=== PATIENT | male | born 1935 | race Caucasian/White ===

== ENCOUNTER 2018-01-12 21:10 | Emergency (ER) | payer OTHER, MEDICARE ==
[2018-01-12] MEDS ORDERED: Lidocaine 1% 30 ML SDV INJECT ONE (21:26)
--- NOTE | 2018-01-12 23:39 | EDM.PDOC ---
ED HPI GENERAL MEDICAL PROBLEM - General Chief Complaint: Laceration Stated Complaint: Cut ear on a piece of metal Time Seen by Provider: 01/12/18 21:20 Source of Information: Reports: Patient History Limitations: Reports: No Limitations - History of Present Illness INITIAL COMMENTS - FREE TEXT/NARRATIVE: Pt. presents to ER with complaints to cut to L ear. States that he stuck his ear in a farm implement at approx. 1500 this afternoon. Denies any injury other than what is isolated to his ear. Denies loss of consciousness. No confusion. He states that he is on plavix but is not anticoagulated. No injury other than what is isolated to L helix. Onset: Today - Related Data Allergies Allergy/AdvReac Type Severity Reaction Status Date / Time atorvastatin calcium Allergy Body Aches Verified 01/12/18 21:14 [From Lipitor] gemfibrozil Allergy Body Aches Verified 01/12/18 21:14 Sulfa (Sulfonamide Allergy Bleeding Verified 01/12/18 21:14 Antibiotics) Home Meds: Home Meds Aspirin [Halfprin] 81 mg PO DAILY 04/13/14 [History] Clopidogrel [Plavix] 75 mg PO DAILY 04/13/14 [History] Labetalol [Normodyne] 100 mg PO DAILY 04/13/14 [History] amLODIPine [Norvasc] 10 mg PO BEDTIME 04/13/14 [History] cloNIDine [Catapres] 0.2 mg PO BID 04/13/14 [History] Cholecalciferol (Vitamin D3) [Vitamin D3] 1,000 unit PO DAILY@1300 04/20/14 [ History] Famotidine [Pepcid AC] 20 mg PO BID 04/20/14 [History] Lisinopril [Prinivil] 5 mg PO DAILY 04/20/14 [History] Magnesium Oxide 500 mg PO BID 04/20/14 [History] Multivitamin with Minerals [Multiple Vitamin] 1 tab PO DAILY@1300 04/20/14 [ History] Past Medical History HEENT History: Reports: Cataract, Other (See Below) 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, CAD, High Cholesterol, Hypertension Neurological History: Reports: CVA - Past Surgical History HEENT Surgical History: Reports: Cataract Surgery Social & Family History - Tobacco Use Smoking Status *Q: Never Smoker - Recreational Drug Use Recreational Drug Use: No ED ROS GENERAL - Review of Systems Review Of Systems: See Below Constitutional: Reports: No Symptoms HEENT: Reports: Ear Pain, Other (laceration to helix of ear) Respiratory: Reports: No Symptoms Cardiovascular: Reports: No Symptoms Endocrine: Reports: No Symptoms GI/Abdominal: Reports: No Symptoms : Reports: No Symptoms Musculoskeletal: Reports: No Symptoms Skin: Reports: No Symptoms Neurological: Reports: No Symptoms Psychiatric: Reports: No Symptoms Hematologic/Lymphatic: Reports: No Symptoms Immunologic: Reports: No Symptoms ED EXAM, SKIN/RASH Exam: See Below Exam Limited By: No Limitations General Appearance: Alert, WD/WN, No Apparent Distress Ears: Other (3 cm laceration to helix of L ear) ED SKIN PROCEDURES - Laceration/Wound Repair Left Ear Appearance: Subcutaneous Distal NVT: Neuro & Vascular Intact Anesthetic Type: Local Local Anesthesia - Lidocaine (Xylocaine): 1% Plain Local Anesthetic Volume: 4cc Skin Prep: Chlorhexidine (Hibiciens), Saline Exploration/Debridement/Repair: Wound Explored Closed with: Sutures Suture Size: 4-0 Suture Type: Nylon # of Sutures: 5 Course - Vital Signs Last Recorded V/S: Last Vital Signs Temp 36.9 C 01/12/18 21:16 Pulse 80 01/12/18 21:16 Resp 14 01/12/18 21:16 BP 196/84 H 01/12/18 21:16 Pulse Ox 95 01/12/18 21:16 - Orders/Labs/Meds Meds: Medications Discontinued Medications Generic Name Dose Route Start Last Admin Trade Name Angelita PRN Reason Stop Dose Admin Lidocaine HCl 30 ml 01/12/18 21:26 01/12/18 21:36 Xylocaine-Mpf 1% INJECT 01/12/18 21:27 30 ml ONETIME ONE Administration Departure - Departure Time of Disposition: 23:39 Disposition: Admitted As Inpatient 66 Condition: Good Clinical Impression: Laceration - Discharge Information Instructions: Laceration Care, Adult Referrals: Gray Torres MD [Primary Care Provider] - Forms: ED Department Discharge Additional Instructions: Keep dry for 48 hours. Keep covered for that long as well. Sutures out in 10 days, sooner if redness, swelling, or discharge from the area. - Assessment/Plan Plan: Keep dry for 48 hours. Keep covered for that long as well. Sutures out in 10 days, sooner if redness, swelling, or discharge from the area.
== END 2018-01-12 22:30 | disposition home or self-care (01) ==
LOC: VM.ED 21:10 → SUPCPDRO 21:10 → VM.ED 22:30
DX: S01.312A Laceration without foreign body of left ear, initial encounter (principal); I10 Essential (primary) hypertension; E78.00 Pure hypercholesterolemia, unspecified; I25.810 Atherosclerosis of coronary artery bypass graft(s) without angina pectoris; Z95.1 Presence of aortocoronary bypass graft; Z88.2 Allergy status to sulfonamides; Z88.8 Allergy status to other drugs, medicaments and biological substances; Z79.82 Long term (current) use of aspirin; Z79.01 Long term (current) use of anticoagulants; Z79.899 Other long term (current) drug therapy; W22.8XXA Striking against or struck by other objects, initial encounter; Y92.79 Other farm location as the place of occurrence of the external cause
CPT/HCPCS: 12011; 12013; 99283; 99283-GF-25

== ENCOUNTER 2018-08-07 11:33 | Inpatient (IN) | payer MEDICARE, OTHER ==
--- NOTE | 2018-08-07 18:34 | PCM.HP ---
H&P History of Present Illness - General Date of Service: 08/07/18 Admit Problem/Dx: Admission Diagnosis/Problem Admission Diagnosis/Problem Weakness - History of Present Illness Initial Comments - Free Text/Narative: History of present illness: Swing bed and [place] for postoperative strengthening and diet. Approximately 12 days ago presented to the ER with abdominal pain. CT showed incarcerated inguinal hernia and small bowel obstruction. Underwent surgery pretty quickly in [place]. Postoperative course complicated by ileus. Has just started tolerating full diet the past day or two here. Had an NG tube prior. He otherwise notes he's feeling quite good. He's been walking in the [place]. Did develop some edema in his legs and scrotum postoperatively. He states these are improving pretty briskly as well. Denies any cardiopulmonary symptoms. 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 PMH also incl ASHLEY, HTN, Prostate CA. Medications: Flomax, Trandate, Zetia, sneezing, aspirin, Plavix, Norvasc, lisinopril. Allergies include intolerance of statin, gemfibrozil, sulfa. Nonsmoker. Lives alone. Does have some family in the area. Family history noncontributory. Review of systems: Denies chest pain denies palpitations denies dyspnea denies abdominal pain denies vomiting denies diarrhea denies constipation denies urinary difficulty. Leg and scrotal swelling per HPI. Physical exam. Vital signs normal. Alert oriented pleasant sitting in chair in no acute distress. Heart and lungs clear to auscultation. Abdomen soft nontender with normal bowel sounds. 1+ pitting edema bilaterally. Mild to moderate scrotal edema. Assessment and plan: Swing bed admit for prolonged ileus after surgery for incarcerated hernia and small bowel obstruction. POD ~#12. This appears to be improving. He states he had a good bowel movement and eight pretty normally today. Continue to work on diet. He is ambulating which should help bowel movements as well. Consult PT/ OT. This should help his peripheral and scrotal edema to resolve as well. His coronary disease appears stable. He can resume his usual medicines in this regard. We will recheck his postoperative anemia and hypokalemia in the a.m. - Related Data Allergies/Adverse Reactions: Allergies Allergy/AdvReac Type Severity Reaction Status Date / Time atorvastatin calcium Allergy Body Aches Verified 07/26/18 18:25 [From Lipitor] gemfibrozil Allergy Body Aches Verified 07/26/18 18:25 Sulfa (Sulfonamide Allergy Bleeding Verified 07/26/18 18:25 Antibiotics) Home Medications: Home Meds Clopidogrel [Plavix] 75 mg PO DAILY 04/13/14 [History] Labetalol [Normodyne] 100 mg PO BID 04/13/14 [History] amLODIPine [Norvasc] 10 mg PO DAILY 04/13/14 [History] Cholecalciferol (Vitamin D3) [Vitamin D3] 2,000 unit PO DAILY 04/20/14 [History] Famotidine [Pepcid AC] 20 mg PO BID 04/20/14 [History] Lisinopril [Prinivil] 5 mg PO DAILY 04/20/14 [History] Magnesium Oxide 500 mg PO BID 04/20/14 [History] Multivitamin with Minerals [Multiple Vitamin] 1 tab PO DAILY 04/20/14 [History] Ezetimibe [Zetia] 10 mg PO DAILY 07/26/18 [History] Aspirin [Aspirin EC] 325 mg PO DAILY 08/07/18 [History] Tamsulosin [Tamsulosin 24 Hr] 0.4 mg PO DAILY 08/07/18 [History] oxyCODONE 5 mg PO Q4H PRN 08/07/18 [History] Past Medical History HEENT History: Reports: Cataract, Other (See Below) 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, CAD, High Cholesterol, Hypertension Gastrointestinal History: Reports: Bowel Obstruction Neurological History: Reports: CVA - Past Surgical History HEENT Surgical History: Reports: Cataract Surgery GI Surgical History: Reports: Small Bowel Social & Family History - Tobacco Use Smoking Status *Q: Never Smoker Second Hand Smoke Exposure: No - Caffeine Use Caffeine Use: Reports: Coffee, Soda - Recreational Drug Use Recreational Drug Use: No H&P Review of Systems - Review of Systems: Review Of Systems: See Below Exam - Exam Exam: See Below - Vital Signs Vital Signs: Last Vital Signs Temp 36.5 C 08/07/18 18:00 Pulse 75 08/07/18 18:00 Resp 20 08/07/18 18:00 BP 143/67 H 08/07/18 18:00 Pulse Ox 97 08/07/18 18:00 Weight: 84.822 kg Problem List Initiated/Reviewed/Updated: Yes Orders Last 24hrs: Active Orders 24 hr Category Date Time Status Patient Status [ADT] Routine ADT 08/07/18 15:04 Active Communication Order [RC] DAILY Care 08/07/18 12:37 Active Communication Order [RC] DAILY Care 08/07/18 12:39 Active May Shower [RC] ASDIRECTED Care 08/07/18 12:38 Active Consult to Occupational Therapy [OT Evaluation and Cons 08/07/18 12:36 Active Treatment] [CONS] Routine Consult to Physical Therapy [PT Evaluation and Cons 08/07/18 12:36 Active Treatment] [CONS] Routine
[2018-08-07] MEDS ORDERED: Polyethylene Glycol 3350 Powder 17 GM Packet PO PRN (18:35)
[2018-08-07] MEDS ORDERED: Acetaminophen 325 MG Tab PO PRN (18:35)
[2018-08-07] MEDS ORDERED: Acetaminophen/HYDROcodone 325-5 MG Tab PO PRN (18:35)
[2018-08-07] MEDS ORDERED: Ondansetron 4 MG Tab.DIS PO PRN (18:35)
[2018-08-07] MEDS: Magnesium Oxide 400 MG Tab PO SCH ×2 (18:56→20:43)
[2018-08-07] MEDS: Labetalol 100 MG Tab PO SCH (20:42)
[2018-08-07] MEDS: Famotidine 20 MG Tab PO SCH (20:42)
[2018-08-08] MEDS: oxyCODONE 5 MG Tab PO PRN (06:21)
[2018-08-08 07:31] LABS: CHLORIDE,CL 106 mmol/L (98-107); SODIUM,NA 141 mmol/L (136-145)
[2018-08-08 07:33] LABS: ANION GAP 10.2 mmol/L (10-20)
[2018-08-08] MEDS: Labetalol 100 MG Tab PO SCH ×2 (08:20→20:26)
[2018-08-08] MEDS: amLODIPine 10 MG Tab PO SCH (08:21)
[2018-08-08] MEDS: Tamsulosin 0.4 MG Cap.ER PO SCH (08:21)
[2018-08-08] MEDS: Magnesium Oxide 400 MG Tab PO SCH ×2 (08:21→20:37)
[2018-08-08] MEDS: Ezetimibe 10 MG Tab PO SCH (08:21)
[2018-08-08] MEDS: Cholecalciferol (Vitamin D3) 1,000 Unit Tab PO SCH (08:21)
[2018-08-08] MEDS: Lisinopril 5 MG Tab PO SCH (08:21)
[2018-08-08] MEDS: Clopidogrel 75 MG Tab PO SCH (08:22)
[2018-08-08] MEDS: Aspirin 325 MG Tab.EC PO SCH (08:22)
[2018-08-08] MEDS: Famotidine 20 MG Tab PO SCH ×2 (08:22→20:26)
[2018-08-08] MEDS: Multivitamins with Iron/Calcium/Folic Acid/Minerals Tab PO SCH (08:22)
[2018-08-09] MEDS: oxyCODONE 5 MG Tab PO PRN (02:41)
[2018-08-09] MEDS: Cholecalciferol (Vitamin D3) 1,000 Unit Tab PO SCH (07:05)
[2018-08-09] MEDS: Ezetimibe 10 MG Tab PO SCH (07:05)
[2018-08-09] MEDS: Labetalol 100 MG Tab PO SCH ×2 (07:05→20:13)
[2018-08-09] MEDS: Lisinopril 5 MG Tab PO SCH (07:05)
[2018-08-09] MEDS: Magnesium Oxide 400 MG Tab PO SCH ×2 (07:05→20:13)
[2018-08-09] MEDS: Aspirin 325 MG Tab.EC PO SCH (07:06)
[2018-08-09] MEDS: Multivitamins with Iron/Calcium/Folic Acid/Minerals Tab PO SCH (07:06)
[2018-08-09] MEDS: amLODIPine 10 MG Tab PO SCH (07:06)
[2018-08-09] MEDS: Famotidine 20 MG Tab PO SCH ×2 (07:06→20:13)
[2018-08-09] MEDS: Clopidogrel 75 MG Tab PO SCH (07:06)
[2018-08-09] MEDS: Tamsulosin 0.4 MG Cap.ER PO SCH (07:06)
[2018-08-09] MEDS ORDERED: Magnesium Hydroxide 400 MG/5 ML Susp 30 ML Cup PO ONE (08:38)
[2018-08-10] MEDS: Tamsulosin 0.4 MG Cap.ER PO SCH (07:46)
[2018-08-10] MEDS: Cholecalciferol (Vitamin D3) 1,000 Unit Tab PO SCH (07:46)
[2018-08-10] MEDS: Famotidine 20 MG Tab PO SCH ×2 (07:47→20:45)
[2018-08-10] MEDS: Clopidogrel 75 MG Tab PO SCH (07:47)
[2018-08-10] MEDS: Aspirin 325 MG Tab.EC PO SCH (07:47)
[2018-08-10] MEDS: Multivitamins with Iron/Calcium/Folic Acid/Minerals Tab PO SCH (07:47)
[2018-08-10] MEDS: Magnesium Oxide 400 MG Tab PO SCH ×2 (07:47→20:45)
[2018-08-10] MEDS: Ezetimibe 10 MG Tab PO SCH (07:47)
[2018-08-10] MEDS: amLODIPine 10 MG Tab PO SCH (07:48)
[2018-08-10] MEDS: Lisinopril 5 MG Tab PO SCH (07:48)
[2018-08-10] MEDS: Labetalol 100 MG Tab PO SCH ×2 (07:48→20:45)
[2018-08-11] MEDS: Tamsulosin 0.4 MG Cap.ER PO SCH (08:10)
[2018-08-11] MEDS: Aspirin 325 MG Tab.EC PO SCH (08:10)
[2018-08-11] MEDS: Famotidine 20 MG Tab PO SCH ×2 (08:10→20:39)
[2018-08-11] MEDS: Ezetimibe 10 MG Tab PO SCH (08:10)
[2018-08-11] MEDS: Lisinopril 5 MG Tab PO SCH (08:11)
[2018-08-11] MEDS: Magnesium Oxide 400 MG Tab PO SCH ×2 (08:11→20:39)
[2018-08-11] MEDS: Multivitamins with Iron/Calcium/Folic Acid/Minerals Tab PO SCH (08:11)
[2018-08-11] MEDS: Cholecalciferol (Vitamin D3) 1,000 Unit Tab PO SCH (08:11)
[2018-08-11] MEDS: Clopidogrel 75 MG Tab PO SCH (08:11)
[2018-08-11] MEDS: amLODIPine 10 MG Tab PO SCH (08:12)
[2018-08-11] MEDS: Labetalol 100 MG Tab PO SCH ×2 (08:12→20:39)
[2018-08-12] MEDS: Aspirin 325 MG Tab.EC PO SCH (09:06)
[2018-08-12] MEDS: Tamsulosin 0.4 MG Cap.ER PO SCH (09:06)
[2018-08-12] MEDS: amLODIPine 10 MG Tab PO SCH (09:07)
[2018-08-12] MEDS: Labetalol 100 MG Tab PO SCH ×2 (09:08→20:00)
[2018-08-12] MEDS: Cholecalciferol (Vitamin D3) 1,000 Unit Tab PO SCH (09:09)
[2018-08-12] MEDS: Famotidine 20 MG Tab PO SCH ×2 (09:09→20:01)
[2018-08-12] MEDS: Clopidogrel 75 MG Tab PO SCH (09:10)
[2018-08-12] MEDS: Lisinopril 5 MG Tab PO SCH (09:10)
[2018-08-12] MEDS: Multivitamins with Iron/Calcium/Folic Acid/Minerals Tab PO SCH (09:10)
[2018-08-12] MEDS: Ezetimibe 10 MG Tab PO SCH (09:11)
[2018-08-12] MEDS: Magnesium Oxide 400 MG Tab PO SCH ×2 (09:12→20:01)
[2018-08-13] MEDS: Famotidine 20 MG Tab PO SCH ×2 (07:46→19:29)
[2018-08-13] MEDS: Magnesium Oxide 400 MG Tab PO SCH ×2 (07:46→19:29)
[2018-08-13] MEDS: Tamsulosin 0.4 MG Cap.ER PO SCH (07:47)
[2018-08-13] MEDS: Ezetimibe 10 MG Tab PO SCH (07:47)
[2018-08-13] MEDS: Aspirin 325 MG Tab.EC PO SCH (07:47)
[2018-08-13] MEDS: Labetalol 100 MG Tab PO SCH ×2 (07:47→19:29)
[2018-08-13] MEDS: Lisinopril 5 MG Tab PO SCH (07:48)
[2018-08-13] MEDS: Clopidogrel 75 MG Tab PO SCH (07:48)
[2018-08-13] MEDS: Cholecalciferol (Vitamin D3) 1,000 Unit Tab PO SCH (07:48)
[2018-08-13] MEDS: Multivitamins with Iron/Calcium/Folic Acid/Minerals Tab PO SCH (07:48)
[2018-08-13] MEDS: amLODIPine 10 MG Tab PO SCH (07:48)
[2018-08-14] MEDS: Aspirin 325 MG Tab.EC PO SCH (07:55)
[2018-08-14] MEDS: Clopidogrel 75 MG Tab PO SCH (07:55)
[2018-08-14] MEDS: Lisinopril 5 MG Tab PO SCH (07:55)
[2018-08-14] MEDS: Magnesium Oxide 400 MG Tab PO SCH ×2 (07:55→19:40)
[2018-08-14] MEDS: Tamsulosin 0.4 MG Cap.ER PO SCH (07:55)
[2018-08-14] MEDS: Ezetimibe 10 MG Tab PO SCH (07:56)
[2018-08-14] MEDS: Multivitamins with Iron/Calcium/Folic Acid/Minerals Tab PO SCH (07:56)
[2018-08-14] MEDS: Labetalol 100 MG Tab PO SCH ×2 (07:56→19:39)
[2018-08-14] MEDS: Cholecalciferol (Vitamin D3) 1,000 Unit Tab PO SCH (07:56)
[2018-08-14] MEDS: Famotidine 20 MG Tab PO SCH ×2 (07:56→19:39)
[2018-08-14] MEDS: amLODIPine 10 MG Tab PO SCH (07:56)
[2018-08-15] MEDS: Ezetimibe 10 MG Tab PO SCH (08:09)
[2018-08-15] MEDS: Tamsulosin 0.4 MG Cap.ER PO SCH (08:10)
[2018-08-15] MEDS: Cholecalciferol (Vitamin D3) 1,000 Unit Tab PO SCH (08:10)
[2018-08-15] MEDS: Magnesium Oxide 400 MG Tab PO SCH ×3 (08:10→19:00)
[2018-08-15] MEDS: Aspirin 325 MG Tab.EC PO SCH (08:10)
[2018-08-15] MEDS: Clopidogrel 75 MG Tab PO SCH (08:10)
[2018-08-15] MEDS: Multivitamins with Iron/Calcium/Folic Acid/Minerals Tab PO SCH (08:11)
[2018-08-15] MEDS: Lisinopril 5 MG Tab PO SCH (08:12)
[2018-08-15] MEDS: Labetalol 100 MG Tab PO SCH ×3 (08:12→19:00)
[2018-08-15] MEDS: amLODIPine 10 MG Tab PO SCH (08:41)
[2018-08-15] MEDS: Famotidine 20 MG Tab PO SCH ×3 (08:44→19:00)
[2018-08-15] MEDS ORDERED: Magnesium Hydroxide 400 MG/5 ML Susp 30 ML Cup PO ONE (11:38)
--- NOTE | 2018-08-15 13:50 | PCM.DCSUM1 ---
Discharge Summary - Hospital Course Free Text/Narrative:: Admitted to swing bed for some basic cares after incarcerated hernia with postoperative ileus. Tolerating full diet, still some subjective constipation but passing BM every day. Ambulating without difficulty. He easily passed PTOT goals. Remote history of coronary disease which appears stable. Ready to return home. He will follow-up with primary care in about a week and with his surgeon in about two weeks for recheck. Be sure to have adequate fiber and fluid at home. Diagnosis: Stroke: No - Discharge Data Discharge Date: 08/17/18 Discharge Disposition: Home, Self-Care 01 Condition: Good - Patient Summary/Data Consults: Consultations 08/07/18 12:36 Consult to Occupational Therapy [OT Evaluation and Treatment] [CONS] Routine Consult to Physical Therapy [PT Evaluation and Treatment] [CONS] Routine - Discharge Plan *PRESCRIPTION DRUG MONITORING PROGRAM REVIEWED*: Not Applicable *COPY OF PRESCRIPTION DRUG MONITORING REPORT IN PATIENT [place]: Not Applicable Home Medications: Home Meds Clopidogrel [Plavix] 75 mg PO DAILY 04/13/14 [History] Labetalol [Normodyne] 100 mg PO BID 04/13/14 [History] amLODIPine [Norvasc] 10 mg PO DAILY 04/13/14 [History] Cholecalciferol (Vitamin D3) [Vitamin D3] 2,000 unit PO DAILY 04/20/14 [History] Famotidine [Pepcid AC] 20 mg PO BID 04/20/14 [History] Lisinopril [Prinivil] 5 mg PO DAILY 04/20/14 [History] Magnesium Oxide 500 mg PO BID 04/20/14 [History] Multivitamin with Minerals [Multiple Vitamin] 1 tab PO DAILY 04/20/14 [History] Ezetimibe [Zetia] 10 mg PO DAILY 07/26/18 [History] Aspirin [Aspirin EC] 325 mg PO DAILY 08/07/18 [History] Tamsulosin [Flomax] 0.4 mg PO DAILY 08/07/18 [History] Acetaminophen [Tylenol] 650 mg PO Q4H PRN tablet 08/15/18 [Rx] Polyethylene Glycol 3350 [MiraLAX] 17 gm PO DAILY PRN packet 08/15/18 [Rx] - Discharge Summary/Plan Comment DC Time >30 min.: No - Patient Data Vitals - Most Recent: Last Vital Signs Temp 37.2 C 08/15/18 06:00 Pulse 78 08/15/18 08:12 Resp 19 08/15/18 06:00 BP 138/66 08/15/18 08:41 Pulse Ox 100 08/15/18 06:00 Weight - Most Recent: 84.822 kg I&O - Last 24 hours: Intake & Output 08/14/18 08/15/18 08/15/18 22:59 06:59 14:59 Intake Total 840 480 Balance 840 480 Med Orders - Current: Current Medications Acetaminophen (Tylenol) 650 mg PO Q4H PRN PRN Reason: Pain (Mild 1-3)/fever Last Admin: 08/10/18 06:06 Dose: 650 mg Hydrocodone Bitart/Acetaminophen ([place]ry 325-5 Mg) 1 tab PO Q4H PRN PRN Reason: Pain (moderate 4-6) Last Admin: 08/09/18 06:31 Dose: 1 tab Amlodipine Besylate (Norvasc) 10 mg PO DAILY [facility] Last Admin: 08/15/18 08:41 Dose: 10 mg Aspirin (Ecotrin) 325 mg PO DAILY [facility] Last Admin: 08/15/18 08:10 Dose: 325 mg Cholecalciferol (Vitamin D3) 2,000 units PO DAILY [facility] Last Admin: 08/15/18 08:10 Dose: 2,000 units Clopidogrel Bisulfate (Plavix) 75 mg PO DAILY [facility] Last Admin: 08/15/18 08:10 Dose: 75 mg Ezetimibe (Zetia) 10 mg PO DAILY [facility] Last Admin: 08/15/18 08:09 Dose: 10 mg Famotidine (Pepcid) 20 mg PO BID [facility] Last Admin: 08/15/18 08:44 Dose: 20 mg Labetalol HCl (Normodyne) 100 mg PO BID [facility] Last Admin: 08/15/18 08:12 Dose: 100 mg Lisinopril (Prinivil) 5 mg PO DAILY [facility] Last Admin: 08/15/18 08:12 Dose: 5 mg Magnesium Oxide (Magnesium Oxide) 400 mg PO BID [facility] Last Admin: 08/15/18 08:10 Dose: 400 mg Multivitamins/Minerals (Thera M Plus) 1 tab PO DAILY [facility] Last Admin: 08/15/18 08:11 Dose: 1 tab Ondansetron HCl (Zofran Odt) 4 mg PO Q6H PRN PRN Reason: nausea, able to take PO Oxycodone HCl (Oxycodone) 5 mg PO Q4H PRN PRN Reason: Pain Last Admin: 08/09/18 02:41 Dose: 5 mg Polyethylene Glycol (Miralax) 17 gm PO DAILY PRN PRN Reason: Constipation Last Admin: 08/14/18 19:47 Dose: 17 gm Tamsulosin HCl (Flomax) 0.4 mg PO DAILY [facility] Last Admin: 08/15/18 08:10 Dose: 0.4 mg Discontinued Medications Magnesium Hydroxide (Milk Of Magnesia) 30 ml PO ONETIME ONE Stop: 08/09/18 08:39 Last Admin: 08/09/18 09:07 Dose: 30 ml Magnesium Hydroxide (Milk Of Magnesia) 30 ml PO ONETIME ONE Stop: 08/15/18 11:39 Last Admin: 08/15/18 12:35 Dose: 30 ml
[2018-08-16] MEDS: Magnesium Oxide 400 MG Tab PO SCH ×2 (08:14→19:01)
[2018-08-16] MEDS: Tamsulosin 0.4 MG Cap.ER PO SCH (08:14)
[2018-08-16] MEDS: Famotidine 20 MG Tab PO SCH ×2 (08:14→19:01)
[2018-08-16] MEDS: Cholecalciferol (Vitamin D3) 1,000 Unit Tab PO SCH (08:14)
[2018-08-16] MEDS: Clopidogrel 75 MG Tab PO SCH (08:14)
[2018-08-16] MEDS: Multivitamins with Iron/Calcium/Folic Acid/Minerals Tab PO SCH (08:15)
[2018-08-16] MEDS: Ezetimibe 10 MG Tab PO SCH (08:15)
[2018-08-16] MEDS: Aspirin 325 MG Tab.EC PO SCH (08:15)
[2018-08-16] MEDS: Lisinopril 5 MG Tab PO SCH (08:16)
[2018-08-16] MEDS: amLODIPine 10 MG Tab PO SCH (08:16)
[2018-08-16] MEDS: Labetalol 100 MG Tab PO SCH ×2 (08:16→19:01)
[2018-08-17] MEDS: Clopidogrel 75 MG Tab PO SCH (07:58)
[2018-08-17] MEDS: amLODIPine 10 MG Tab PO SCH (07:58)
[2018-08-17] MEDS: Ezetimibe 10 MG Tab PO SCH (07:58)
[2018-08-17] MEDS: Tamsulosin 0.4 MG Cap.ER PO SCH (07:58)
[2018-08-17] MEDS: Lisinopril 5 MG Tab PO SCH (07:58)
[2018-08-17] MEDS: Multivitamins with Iron/Calcium/Folic Acid/Minerals Tab PO SCH (07:58)
[2018-08-17] MEDS: Famotidine 20 MG Tab PO SCH (07:58)
[2018-08-17] MEDS: Cholecalciferol (Vitamin D3) 1,000 Unit Tab PO SCH (07:58)
[2018-08-17] MEDS: Aspirin 325 MG Tab.EC PO SCH (07:59)
[2018-08-17] MEDS: Labetalol 100 MG Tab PO SCH (07:59)
[2018-08-17] MEDS: Magnesium Oxide 400 MG Tab PO SCH (07:59)
== END 2018-08-17 12:30 | disposition home or self-care (01) | DRG 948 ==
LOC: VM.MS 15:04
PROVIDERS: ADMIT Family Medicine; ATTEND Family Medicine
DX: R53.1 Weakness (principal); K56.7 Ileus, unspecified; K91.89 Other postprocedural complications and disorders of digestive system; I10 Essential (primary) hypertension; C61 Malignant neoplasm of prostate; I25.10 Atherosclerotic heart disease of native coronary artery without angina pectoris; K59.09 Other constipation; N50.89 Other specified disorders of the male genital organs; R60.0 Localized edema; Z95.1 Presence of aortocoronary bypass graft; Z79.899 Other long term (current) drug therapy; D64.9 Anemia, unspecified; Z98.890 Other specified postprocedural states; Z88.2 Allergy status to sulfonamides; Z88.8 Allergy status to other drugs, medicaments and biological substances; Z79.82 Long term (current) use of aspirin; Z86.73 Personal history of transient ischemic attack (TIA), and cerebral infarction without residual deficits
CPT/HCPCS: 36415; 80053; 83735; 85025; 97110-GO; 97161-GP; 97165-GO; 97535-GO; A9270-GY

== ENCOUNTER 2018-08-28 10:30 | Emergency (ER) | payer MEDICARE, OTHER ==
[2018-08-28] MEDS ORDERED: Sodium Chloride 0.9% 10 ML Syringe FLUSH PRN (10:51)
--- NOTE | 2018-08-28 11:12 | EDM.PDOC ---
ED HPI GENERAL MEDICAL PROBLEM - General Chief Complaint: Abdominal Pain Stated Complaint: ABDOMINAL PAIN Time Seen by Provider: 08/28/18 10:33 Source of Information: Reports: Patient, Old Records, RN, RN Notes Reviewed History Limitations: Reports: No Limitations - History of Present Illness INITIAL COMMENTS - FREE TEXT/NARRATIVE: Patient presents the emergency room at [facility] complaining of mid abdominal pain. The patient states the pain started around 3:30 AM this morning. The patient states that the pain went away on its own. The mid abdominal pain then returned around 6 AM. The patient states that he tried eating which made the pain worse. The patient has not tried any other modalities at home for his pain. The patient has not had any fevers or chills. No shortness of breath or chest pain. Patient states he feels nauseated but has not vomiting. No diarrhea. His last BM was yesterday and normal. Patient denies any radiation of the pain. He described the pain as a dull pressure, and soreness. Onset: Today Onset Date: 08/28/18 Onset Time: 03:30 Middle Abdomen Pain Score (Numeric/FACES): 10 - Related Data Allergies Allergy/AdvReac Type Severity Reaction Status Date / Time atorvastatin calcium Allergy Body Aches Verified 08/28/18 11:00 [From Lipitor] gemfibrozil Allergy Body Aches Verified 08/28/18 11:00 Sulfa (Sulfonamide Allergy Bleeding Verified 08/28/18 11:00 Antibiotics) Home Meds: Home Meds Clopidogrel [Plavix] 75 mg PO DAILY 04/13/14 [History] Labetalol [Normodyne] 100 mg PO BID 04/13/14 [History] amLODIPine [Norvasc] 10 mg PO DAILY 04/13/14 [History] Cholecalciferol (Vitamin D3) [Vitamin D3] 2,000 unit PO DAILY 04/20/14 [History] Famotidine [Pepcid AC] 20 mg PO BID 04/20/14 [History] Lisinopril [Prinivil] 5 mg PO DAILY 04/20/14 [History] Magnesium Oxide 500 mg PO BID 04/20/14 [History] Multivitamin with Minerals [Multiple Vitamin] 1 tab PO DAILY 04/20/14 [History] Ezetimibe [Zetia] 10 mg PO DAILY 07/26/18 [History] Aspirin [Aspirin EC] 325 mg PO DAILY 08/07/18 [History] Tamsulosin [Flomax] 0.4 mg PO DAILY 08/07/18 [History] Acetaminophen [Tylenol] 650 mg PO Q4H PRN tablet 08/15/18 [Rx] Polyethylene Glycol 3350 [MiraLAX] 17 gm PO DAILY PRN packet 08/15/18 [Rx] Past Medical History HEENT History: Reports: Cataract, Other (See Below) 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, CAD, High Cholesterol, Hypertension Gastrointestinal History: Reports: Bowel Obstruction Neurological History: Reports: CVA - Past Surgical History HEENT Surgical History: Reports: Cataract Surgery GI Surgical History: Reports: Hernia, Inguinal, Small Bowel Social & Family History - Tobacco Use Smoking Status *Q: Unknown Ever Smoked - Caffeine Use Caffeine Use: Reports: Coffee, Soda ED ROS GENERAL - Review of Systems Review Of Systems: See Below Constitutional: Denies: Fever, Chills Respiratory: Denies: Shortness of Breath, Cough Cardiovascular: Denies: Chest Pain, Palpitations GI/Abdominal: Reports: Abdominal Pain, Nausea. Denies: Diarrhea, Vomiting Skin: Reports: No Symptoms Neurological: Reports: No Symptoms ED EXAM, GI/ABD - Physical Exam Exam: See Below Exam Limited By: No Limitations General Appearance: Alert, No Apparent Distress Respiratory/Chest: No Respiratory Distress, Lungs Clear, Normal Breath Sounds Cardiovascular: Normal Peripheral Pulses, Regular Rate, Rhythm GI/Abdominal Exam: Normal Bowel Sounds, Soft, Tender (periumbilical) (Male) Exam: Hernia (Right Inguinal, nonspecific) Neurological: Alert, Oriented Skin Exam: Warm, Dry, Intact, Normal Color Course - Vital Signs Last Recorded V/S: Last Vital Signs Temp 36.2 C 08/28/18 10:45 Pulse 66 08/28/18 10:45 Resp 18 08/28/18 10:45 BP 157/64 H 08/28/18 10:45 Pulse Ox 98 08/28/18 10:45 - Orders/Labs/Meds Orders: Active Orders 24 hr Category Date Time Status Sodium Chloride 0.9% [Saline Flush] Med 08/28/18 10:51 Active 10 ml FLUSH ASDIRECTED PRN Peripheral IV Insertion Adult [OM.PC] Routine Oth 08/28/18 10:51 Ordered Medication Orders Sodium Chloride (Saline Flush) 10 ml FLUSH ASDIRECTED PRN PRN Reason: Keep Vein Open Labs: Laboratory Tests 08/28/18 08/28/18 08/28/18 Range/Units 11:20 11:20 11:20 WBC 8.2 (4.0-10.0) x10^3/uL RBC 3.90 L (4.5-6.0) x10^6/uL Hgb 12.4 L D (14.0-18.0) g/dL Hct 36.9 L (40.0-52.0) % MCV 94.6 H D (78.0-93.0) fL MCH 31.8 (26.0-32.0) pg MCHC 33.6 (32.0-36.0) g/dL RDW Coeff of Felix 13.7 (10.0-15.0) % Plt Count 241 (130-400) x10^3/uL Neut % (Auto) 64.8 (50.0-80.0) % Lymph % (Auto) 21.7 L (25.0-50.0) % Ocean % (Auto) 11.3 H (2.0-11.0) % Eos % (Auto) 2.0 (0.0-4.0) % Baso % (Auto) 0.2 (0.2-1.2) % Sodium 140 (136-145) mmol/L Potassium 4.0 (3.5-5.1) mmol/L Chloride 105 (98-107) mmol/L Carbon Dioxide 24 (21-32) mmol/L Anion Gap 15.0 (10-20) mmol/L BUN 21 H (7-18) mg/dL Creatinine 1.3 (0.70-1.30) mg/dL Est Cr Clr Drug Dosing TNP Estimated GFR (MDRD) 53 Glucose 126 H (74-106) mg/dL Lactic Acid 1.2 (0.4-2.0) mmol/L Calcium 9.7 (8.5-10.1) mg/dL Corrected Calcium 10.34 H (8.5-10.1) mg/dL Total Bilirubin 0.8 (0.2-1.0) mg/dL AST 183 H (15-37) U/L ALT 115 H (16-63) U/L Alkaline Phosphatase 120 H (46-116) U/L C-Reactive Protein < 0.2 (<=0.9) mg/dL Total Protein 7.5 (6.4-8.2) g/dL Albumin 3.2 L (3.4-5.0) g/dL Globulin 4.3 Albumin/Globulin Ratio 0.74 Amylase 66 (25-115) U/L Lipase 472 H (73-393) U/L Meds: Medications Generic Name Dose Route Start Last Admin Trade Name Freq PRN Reason Stop Dose Admin Sodium Chloride 10 ml 08/28/18 10:51 Saline Flush FLUSH ASDIRECTED PRN Keep Vein Open Discontinued Medications Generic Name Dose Route Start Last Admin Trade Name Freq PRN Reason Stop Dose Admin Famotidine 20 mg 08/28/18 11:10 08/28/18 11:44 Pepcid IVPUSH 08/28/18 11:11 20 mg ONETIME ONE Administration Sodium Chloride 1,000 mls @ 999 mls/hr 08/28/18 11:10 08/28/18 11:37 Normal Saline IV 08/28/18 12:10 999 mls/hr ONETIME ONE Administration Iopamidol 100 ml 08/28/18 11:38 08/28/18 11:39 Isovue-300 (61%) IVPUSH 08/28/18 11:39 100 ml ONETIME ONE Administration Metoclopramide HCl 10 mg 08/28/18 11:10 08/28/18 11:41 Reglan IVPUSH 08/28/18 11:11 10 mg ONETIME ONE Administration Ondansetron HCl 4 mg 08/28/18 11:10 08/28/18 11:38 Zofran IVPUSH 08/28/18 11:11 4 mg ONETIME ONE Administration Pantoprazole Sodium 40 mg 08/28/18 11:10 08/28/18 11:47 Protonix Iv IVPUSH 08/28/18 11:11 40 mg ONETIME ONE Administration - Radiology Interpretation Free Text/Narrative:: CT Abd/Pelvis w/contrast: Left inguinal pathology; no bowel obstruction; left inguinal pathology could simply be postoperative; the patient has had a previously large left inguinal hernia; small right inguinal hernia containing mesenteric fat; distended gallbladder; minimal dilation of biliary radicles See scanned report in EMR for details CT Results Date: 08/28/18 CT Results Time: 12:02 Departure - Departure Time of Disposition: 13:05 Disposition: Home, Self-Care 01 Condition: Good Clinical Impression: Abdominal pain Qualifiers: Abdominal location: periumbilical Qualified Code(s): R10.33 - Periumbilical pain - Discharge Information *PRESCRIPTION DRUG MONITORING PROGRAM REVIEWED*: Not Applicable *COPY OF PRESCRIPTION DRUG MONITORING REPORT IN PATIENT [place]: Not Applicable Instructions: Abdominal Pain, Adult Referrals: Gray Torres MD [Primary Care Provider] - Forms: ED Department Discharge Additional Instructions: 1. Stay well hydrated and rest 2. Eat a bland diet, eat smaller meals 3. LOTS of water 4. Keep appts you have scheduled this week and next 5. Call us with any questions or concerns ED Communication - ED Communication Date/Time Date: 08/28/18 Time Called: 12:53 - Discussed Case With (1) Discussed Case With (1): Outpatient Provider (Dr. Barton, [facility]) - Conversation Summary Summary Comment: Recommend patient f/u with PCP. No acute findings on CT. Eat a bland diet. Rest bowel - Problem List Review Problem List Initiated/Reviewed/Updated: Yes - My Orders Last 24 Hours: My Active Orders 08/28/18 10:51 Sodium Chloride 0.9% [Saline Flush] 10 ml FLUSH ASDIRECTED PRN Peripheral IV Insertion Adult [OM.PC] Routine - Assessment/Plan Last 24 Hours: My Active Orders 08/28/18 10:51 Sodium Chloride 0.9% [Saline Flush] 10 ml FLUSH ASDIRECTED PRN Peripheral IV Insertion Adult [OM.PC] Routine Assessment:: Abdominal Pain, unknown etiology Plan: Case discussed with Dr. Barton, Surgery [facility]. No acute pathology on CT. Dr. Barton recommends f/u with PCP this week for a recheck.
[2018-08-28] MEDS: Sodium Chloride 0.9% 1,000 ML IV ONE (11:37)
[2018-08-28] MEDS: Ondansetron 4 MG/2 ML SDV IVPUSH ONE (11:38)
[2018-08-28] MEDS: Iopamidol 612 MG/ML 100 ML Bottle IVPUSH ONE (11:39)
[2018-08-28] MEDS: Metoclopramide 10 MG/2 ML SDV IVPUSH ONE (11:41)
[2018-08-28] MEDS: Famotidine 20 MG/2 ML SDV IVPUSH ONE (11:44)
[2018-08-28] MEDS: Pantoprazole 40 MG Vial IVPUSH ONE (11:47)
[2018-08-28 11:52] LABS: CHLORIDE,CL 105 mmol/L (98-107); SODIUM,NA 140 mmol/L (136-145)
--- NOTE | 2018-08-28 12:03 | CT ---
[id number] CT/CT Abdomen Pelvis W IV EXAM: CT Abdomen Pelvis W IV CLINICAL DATA: ABDOMINAL PAIN. NAUSEA. COMPARISON: CORRELATION IS MADE WITH THE EXAM OF JULY 26, 2018. FINDINGS: Pathology is seen in the left inguinal region. A left inguinal hernia was present here previously. This appears different currently. Question is raised if the patient had surgery in the interim. The biliary system is slightly distended. A tiny cyst in the right lobe of the liver is stable. The gallbladder is distended. The aorta, adrenals, pancreas, kidneys, spleen otherwise are unremarkable except for minimal nephrolithiasis of the right kidney. There is a tiny cyst in each kidney. The appendix is not seen. There is no evidence of appendicitis. The pelvis shows no mass or adenopathy. There are surgical changes of the anterior abdominal wall. There is a right inguinal hernia also containing mesenteric fat. The prostate appears to have been removed. The patient appears to have had a bilateral iliac lymph node dissection. 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 There is a moderate hiatal hernia. IMPRESSION: LEFT INGUINAL PATHOLOGY. NO BOWEL OBSTRUCTION. LEFT INGUINAL PATHOLOGY COULD SIMPLY BE POSTOPERATIVE. CORRELATION WITH PHYSICAL EXAM WOULD BE HELPFUL TO KNOW IF THE LEFT INGUINAL FINDINGS ARE REDUCIBLE. THE PATIENT HAS HAD A PREVIOUSLY LARGE LEFT INGUINAL HERNIA. SMALL RIGHT INGUINAL HERNIA CONTAINING MESENTERIC FAT. DISTENDED GALLBLADDER. MINIMAL DILATATION OF BILIARY RADICLES. David Phelps MD 08/28/18 0394 Thank you for allowing us to participate in the care of your patient.
== END 2018-08-28 13:15 | disposition home or self-care (01) ==
LOC: VM.ED 10:30
DX: R10.33 Periumbilical pain (principal); I10 Essential (primary) hypertension; I25.10 Atherosclerotic heart disease of native coronary artery without angina pectoris; Z95.1 Presence of aortocoronary bypass graft; Z86.73 Personal history of transient ischemic attack (TIA), and cerebral infarction without residual deficits; Z79.82 Long term (current) use of aspirin; Z79.899 Other long term (current) drug therapy; Z88.2 Allergy status to sulfonamides; Z88.8 Allergy status to other drugs, medicaments and biological substances
CPT/HCPCS: 74177; 80053; 82150; 83605; 83690; 85025; 86140; 96361; 96374; 96375; 99284; C9113; J2405; J2765; J3490; J7030; Q9967

== ENCOUNTER 2020-05-03 08:30 | Emergency (ER) | payer MEDICARE, OTHER ==
--- NOTE | 2020-05-03 09:10 | EDM.PDOC ---
ED HPI GENERAL MEDICAL PROBLEM - General Chief Complaint: General Stated Complaint: COVID SYMPTOMS Time Seen by Provider: 05/03/20 09:00 Source of Information: Reports: Patient - History of Present Illness INITIAL COMMENTS - FREE TEXT/NARRATIVE: Pan is an 84 y/o male who comes to the ER this AM with a sore throat, cough, an nausea, and diarrhea. He reports that he started to have sx on and they have just gotten worse. He has not felt well at all. This AM his throat is very sore. He lives alone. Has not taken any meds. - Related Data Allergies Allergy/AdvReac Type Severity Reaction Status Date / Time atorvastatin calcium Allergy Body Aches Verified 05/03/20 08:55 [From Lipitor] gemfibrozil Allergy Body Aches Verified 05/03/20 08:55 Sulfa (Sulfonamide Allergy Bleeding Verified 05/03/20 08:55 Antibiotics) Home Meds: Home Meds Clopidogrel [Plavix] 75 mg PO DAILY 04/13/14 [History] Labetalol [Normodyne] 100 mg PO BID 04/13/14 [History] amLODIPine [Norvasc] 10 mg PO DAILY 04/13/14 [History] Cholecalciferol (Vitamin D3) [Vitamin D3] 2,000 unit PO DAILY 04/20/14 [History] Famotidine [Pepcid AC] 20 mg PO BID 04/20/14 [History] Magnesium Oxide 500 mg PO BID 04/20/14 [History] Multivitamin with Minerals [Multiple Vitamin] 1 tab PO DAILY 04/20/14 [History] lisinopriL [Prinivil] 5 mg PO DAILY 04/20/14 [History] Ezetimibe [Zetia] 10 mg PO DAILY 07/26/18 [History] Aspirin [Aspirin EC] 325 mg PO DAILY 08/07/18 [History] Albuterol Sulfate [Albuterol Sulfate Hfa] 1 - 2 inh IH Q4HR PRN 30 Days hfa.aer.ad 05/03/20 [Rx] Past Medical History HEENT History: Reports: Cataract, Other (See Below) 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, CAD, High Cholesterol, Hypertension Gastrointestinal History: Reports: Bowel Obstruction Neurological History: Reports: CVA - Past Surgical History HEENT Surgical History: Reports: Cataract Surgery GI Surgical History: Reports: Hernia, Inguinal, Small Bowel Social & Family History - Family History Family Medical History: Noncontributory - Tobacco Use Smoking Status *Q: Never Smoker - Caffeine Use Caffeine Use: Reports: Coffee, Soda - Recreational Drug Use Recreational Drug Use: No ED ROS GENERAL - Review of Systems Review Of Systems: See Below Constitutional: Reports: Chills, Weakness, Decreased Appetite HEENT: Reports: Rhinitis, Throat Pain Respiratory: Reports: Cough Cardiovascular: Reports: No Symptoms Endocrine: Reports: Fatigue GI/Abdominal: Reports: Diarrhea, Decreased Appetite, Nausea : Reports: No Symptoms Musculoskeletal: Reports: No Symptoms Skin: Reports: No Symptoms Neurological: Reports: Headache Psychiatric: Reports: No Symptoms Hematologic/Lymphatic: Reports: No Symptoms Immunologic: Reports: No Symptoms ED EXAM, GENERAL - Physical Exam Exam: See Below Exam Limited By: No Limitations General Appearance: Alert, WD/WN, No Apparent Distress (Elderly male, appears to not feel well) Eye Exam: Bilateral Eye: PERRL Ears: Normal External Exam, Normal Canal, Hearing Grossly Normal, Normal TMs Nose: Normal Inspection, Normal Mucosa, No Blood Throat/Mouth: Normal Inspection, Normal Lips, Normal Voice, No Airway Compromise Head: Atraumatic, Normocephalic Neck: Normal Inspection, Supple Respiratory/Chest: No Respiratory Distress, Lungs Clear, Chest Non-Tender, Other (Note well healed midline surgical scar) Cardiovascular: Normal Peripheral Pulses, Regular Rate, Rhythm GI/Abdominal: Normal Bowel Sounds, Soft, Non-Tender (Male) Exam: Deferred Rectal (Males) Exam: Deferred Back Exam: Normal Inspection Extremities: Normal Inspection, Normal Range of Motion, Normal Capillary Refill Neurological: Alert, Oriented, CN II-XII Intact, Normal Cognition, No Motor/Sensory Deficits Psychiatric: Normal Affect, Normal Mood Skin Exam: Warm, Dry, Intact, Normal Color Lymphatic: No Adenopathy Course - Vital Signs Text/Narrative:: 0935 COVID test done on arrival. +COVID result noted. PRODUCTION REPAIRER assessed patient. VSS. Additional labs and CXR ordered. 1035 Labs and CXR reviewed. Discussed with patient. PRODUCTION REPAIRER reviewed care of COVID+ patients. Questions answered. Discharge instructions were given by RN and patient remained stable until departure. Last Recorded V/S: Last Vital Signs Temp 36.7 C 10/05/20 08:49 Pulse 79 05/03/20 08:49 Resp 16 05/03/20 08:49 BP 138/68 05/03/20 08:49 Pulse Ox 95 05/03/20 08:49 - Orders/Labs/Meds Labs: Laboratory Tests 05/03/20 05/03/20 05/03/20 Range/Units 09:00 09:30 09:30 WBC 5.3 (4.0-10.0) x10^3/uL RBC 4.30 L (4.5-6.0) x10^6/uL Hgb 14.0 D (14.0-18.0) g/dL Hct 40.5 (40.0-52.0) % MCV 94.2 H (78.0-93.0) fL MCH 32.6 H (26.0-32.0) pg MCHC 34.6 (32.0-36.0) g/dL RDW Coeff of Felix 12.8 (10.0-15.0) % Plt Count 156 D (130-400) x10^3/uL Neut % (Auto) 67.0 (50.0-80.0) % Lymph % (Auto) 21.4 L (25.0-50.0) % [place] % (Auto) 11.4 H (2.0-11.0) % Eos % (Auto) 0.0 (0.0-4.0) % Baso % (Auto) 0.2 (0.2-1.2) % PT (9.5-12.3) SEC INR (2.0-3.5) APTT (25.6-32.8) SEC D-Dimer, Quantitative (<=0.58) mg/LFEU Sodium 137 (136-145) mmol/L Potassium 4.0 (3.5-5.1) mmol/L Chloride 102 (98-107) mmol/L Carbon Dioxide 28 (21-32) mmol/L Anion Gap 11.0 (10-20) mmol/L BUN 19 H (7-18) mg/dL Creatinine 1.7 H (0.70-1.30) mg/dL Est Cr Clr Drug Dosing 29.19 mL/min Estimated GFR (MDRD) 39 Glucose 117 H (74-106) mg/dL Calcium 8.6 (8.5-10.1) mg/dL Corrected Calcium 9.24 (8.5-10.1) mg/dL Total Bilirubin 0.6 (0.2-1.0) mg/dL AST 27 (15-37) U/L ALT 36 (16-63) U/L Alkaline Phosphatase 119 H (46-116) U/L C-Reactive Protein 1.4 H (<=0.9) mg/dL Total Protein 6.7 (6.4-8.2) g/dL Albumin 3.2 L (3.4-5.0) g/dL Globulin 3.5 Albumin/Globulin Ratio 0.91 SARS CoV-2 RNA Rapid KELLY Positive H (NEGATIVE) 05/03/20 Range/Units 09:30 WBC (4.0-10.0) x10^3/uL RBC (4.5-6.0) x10^6/uL Hgb (14.0-18.0) g/dL Hct (40.0-52.0) % MCV (78.0-93.0) fL MCH (26.0-32.0) pg MCHC (32.0-36.0) g/dL RDW Coeff of Felix (10.0-15.0) % Plt Count (130-400) x10^3/uL Neut % (Auto) (50.0-80.0) % Lymph % (Auto) (25.0-50.0) % [place] % (Auto) (2.0-11.0) % Eos % (Auto) (0.0-4.0) % Baso % (Auto) (0.2-1.2) % PT 10.0 (9.5-12.3) SEC INR 0.9 L (2.0-3.5) APTT 29.0 (25.6-32.8) SEC D-Dimer, Quantitative 0.65 H (<=0.58) mg/LFEU Sodium (136-145) mmol/L Potassium (3.5-5.1) mmol/L Chloride (98-107) mmol/L Carbon Dioxide (21-32) mmol/L Anion Gap (10-20) mmol/L BUN (7-18) mg/dL Creatinine (0.70-1.30) mg/dL Est Cr Clr Drug Dosing mL/min Estimated GFR (MDRD) Glucose (74-106) mg/dL Calcium (8.5-10.1) mg/dL Corrected Calcium (8.5-10.1) mg/dL Total Bilirubin (0.2-1.0) mg/dL AST (15-37) U/L ALT (16-63) U/L Alkaline Phosphatase (46-116) U/L C-Reactive Protein (<=0.9) mg/dL Total Protein (6.4-8.2) g/dL Albumin (3.4-5.0) g/dL Globulin Albumin/Globulin Ratio SARS CoV-2 RNA Rapid KELLY (NEGATIVE) Departure - Departure Time of Disposition: 10:38 Disposition: Home, Self-Care 01 Condition: Good Clinical Impression: COVID-19 virus detected - Discharge Information *PRESCRIPTION DRUG MONITORING PROGRAM REVIEWED*: No *COPY OF PRESCRIPTION DRUG MONITORING REPORT IN PATIENT NORMAN: No Prescriptions: Albuterol Sulfate [Albuterol Sulfate Hfa] 1 - 2 inh IH Q4HR PRN 30 Days hfa.aer.ad PRN Reason: Cough Instructions: COVID-19 Frequently Asked Questions, Prevent the Spread of COVID- 19 if You Are Sick - CDC Forms: ED Department Discharge Sepsis Event Note (ED) - Evaluation Sepsis Screening Result: No Definite Risk - Focused Exam Vital Signs: Vital Signs Temp Pulse Resp BP Pulse Ox 05/03/20 08:49 36.7 C 79 16 138/68 95 - Assessment/Plan Assessment:: 1)COVID 19+ Plan: -Albuterol HFA inhaler 1-2 puffs every 4 hours as needed for cough (Rx) -Any over the counter meds that are helpful are fine to use. -Honey 1-2 tsp every couple hours is an effective antitussive. -Follow the quarantine guidelines -Some helpful supplements to help with COVID 19 include Zinc, Vitamin C, and Vitamin D -If you develop any shortness or breath or cannot take care of yourself, return to the ER.
--- NOTE | 2020-05-03 10:25 | CR ---
[id number] RAD/RAD Chest PA or AP 1V EXAM: RAD Chest PA or AP 1V INDICATION: COUGH. COMPARISON: None. 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 Correlate with surgical history. Mild amount of bibasal parenchymal scarring. Bilateral symmetric lung hyperinflation, nonspecific but commonly seen as sequela of COPD. No evidence of pneumonia, effusion, pneumothorax, or edema. IMPRESSION: As above. Sanya Holly MD 05/03/20 1024 Thank you for allowing us to participate in the care of your patient.
== END 2020-05-03 10:50 | disposition home or self-care (01) ==
LOC: VM.ED 08:30
DX: U07.1 COVID-19 (principal); I25.10 Atherosclerotic heart disease of native coronary artery without angina pectoris; I10 Essential (primary) hypertension; Z86.73 Personal history of transient ischemic attack (TIA), and cerebral infarction without residual deficits; Z88.8 Allergy status to other drugs, medicaments and biological substances; Z88.2 Allergy status to sulfonamides; Z79.02 Long term (current) use of antithrombotics/antiplatelets; Z79.899 Other long term (current) drug therapy
CPT/HCPCS: 36415; 71045; 80053; 85025; 85379; 85610; 85730; 86140; 99283; 99284-25; U0002

== ENCOUNTER 2022-11-19 19:11 | Emergency (ER) | payer MEDICARE, OTHER ==
[~2022-11-19 19:11] MED LIST: Azithromycin 500 MG Vial ONE; Sodium Chloride 0.9% 250 ML ONE
[2022-11-19] MEDS ORDERED: Sodium Chloride 0.9% 10 ML Syringe FLUSH PRN (19:25)
[2022-11-19] MEDS ORDERED: cefTRIAXone 2 GM Vial IVPUSH ONE (19:38)
[2022-11-19] MEDS ORDERED: Azithromycin 500 MG in Sodium Chloride 0.9% 250 ML IV ONE (19:39)
[2022-11-19] MEDS ORDERED: Albuterol/Ipratropium 3.0-0.5 MG/3 ML Neb Soln NEB ONE (19:56)
[2022-11-19 19:57] LABS: PTT,PARTIAL THROMBOPLSTIN TIME 27.8 SEC (23.6-33.6)
[2022-11-19 20:07] LABS: ANION GAP 12.7 mmol/L (5-15); CHLORIDE,CL 106 mmol/L (98-107); ESTIMATED GFR 34 mL/min (>=60); SODIUM,NA 141 mmol/L (136-145)
[2022-11-19] MEDS ORDERED: cloNIDine 0.1 MG Tab PO ONE (20:13)
[2022-11-19] MEDS ORDERED: Codeine/Promethazine 10-6.25 MG/5 ML Syrup 5 ML UD Cup PO ONE (20:24)
[2022-11-19 20:26] LABS: CORONAVIRUS COVID-19 NAA NEGATIVE (NEGATIVE); RESPIRATORY SYNCYTIAL VIR NAA NEGATIVE (NEGATIVE)
[2022-11-19] MEDS ORDERED: Take Home: Codeine/Promethazine 10-6.25 MG/5 ML Syrup 5 ML, 2 Cup Pack PO ONE (20:59)
[2022-11-19] MEDS ORDERED: Take Home: Albuterol 18 GM Inhaler, 1 Inhaler Pack INH PRN (20:59)
== END 2022-11-19 21:25 | disposition home or self-care (01) ==
LOC: VM.ED 19:11
DX: J45.909 Unspecified asthma, uncomplicated (principal); I10 Essential (primary) hypertension; I25.10 Atherosclerotic heart disease of native coronary artery without angina pectoris; Z88.8 Allergy status to other drugs, medicaments and biological substances; Z88.2 Allergy status to sulfonamides; Z95.1 Presence of aortocoronary bypass graft; Z79.82 Long term (current) use of aspirin; Z86.16 Personal history of COVID-19; Z20.822 Contact with and (suspected) exposure to COVID-19
CPT/HCPCS: 0241U; 36415; 71045; 80053; 83605; 83735; 83880; 84100; 84484; 85025; 85610; 85730; 86140; 87040; 93005; 93010; 94640; 96365; 96375; 99284; 99285-25; A9270-GY; J0456; J0696; J7050; J7620-GY

== ENCOUNTER 2024-05-02 12:00 | Emergency (ER) | payer MEDICARE, OTHER ==
[2024-05-02 12:28] LABS: BASOPHILS ABSOLUTE AUTO 0.1 x10^3/uL (0.0-0.2); BASOPHILS PERCENT AUTO 0.5 % (0.2-1.2); EOSINOPHILS ABSOLUTE AUTO 0.7 x10^3/uL (0.0-0.5); EOSINOPHILS PERCENT AUTO 7.3 % (0.0-4.0); HEMATOCRIT 34.6 % (40.0-52.0); HEMOGLOBIN 11.9 g/dL (14.0-18.0); IMMATURE GRAN ABSOLUTE AUTO 0.01 x10^3/uL (0.00-0.07); LYMPHOCYTES ABSOLUTE AUTO 1.7 x10^3/uL (1.0-4.8); LYMPHOCYTES PERCENT AUTO 16.9 % (25.0-50.0); MEAN CORPUSCULAR HEMOGLOBIN 33.9 pg (26.0-32.0); MEAN CORPUSCULAR HGB CONC 34.4 g/dL (32.0-36.0); MEAN CORPUSCULAR VOLUME 98.6 fL (78.0-93.0); MONOCYTES ABSOLUTE AUTO 1.2 x10^3/uL (0.0-0.8); MONOCYTES PERCENT AUTO 12.1 % (2.0-11.0); NEUTROPHILS ABSOLUTE AUTO 6.2 x10^3/uL (1.8-7.7); NEUTROPHILS PERCENT AUTO 63.1 % (50.0-80.0); PLATELET COUNT,PLT 233 x10^3/uL (130-400); RED BLOOD CELL COUNT 3.51 x10^6/uL (4.5-6.0); WHITE BLOOD CELL COUNT,WBC 9.9 x10^3/uL (4.0-10.0)
[2024-05-02 12:44] LABS: CALCIUM 8.7 mg/dL (8.5-10.1); CREATININE 2.3 mg/dL (0.70-1.30); EST CRCL DRUG DOSING (CG) 20.39 mL/min; POTASSIUM,K 4.5 mmol/L (3.5-5.1)
[2024-05-02 12:49] LABS: ANION GAP 14.5 mmol/L (5-15)
[2024-05-02] MEDS: Sodium Chloride 0.9% 1,000 ML IV SCH (13:07)
[2024-05-02] MEDS: cefTRIAXone 1 GM Vial IVPUSH ONE (13:12)
[2024-05-02] MEDS: Azithromycin 500 MG in Sodium Chloride 0.9% 250 ML IV ONE (13:12)
== END 2024-05-02 14:35 | disposition short-term general hospital (02) ==
LOC: VM.ED 12:00 → SUPCPDRO 12:00 → VM.ED 14:35
DX: J18.9 Pneumonia, unspecified organism (principal); N17.9 Acute kidney failure, unspecified; I10 Essential (primary) hypertension; I25.10 Atherosclerotic heart disease of native coronary artery without angina pectoris; Z95.1 Presence of aortocoronary bypass graft; Z79.899 Other long term (current) drug therapy; Z79.82 Long term (current) use of aspirin; Z88.8 Allergy status to other drugs, medicaments and biological substances; Z88.2 Allergy status to sulfonamides
CPT/HCPCS: 71045; 80048; 83605; 85025; 87040; 87428; 93005; 93010; 94760; 96365; 96375; 99284; 99285-25; J0456; J0696; J7030; J7050

== ENCOUNTER 2024-05-23 13:22 | Inpatient (IN) | payer MEDICARE, OTHER ==
[2024-05-23] MEDS ORDERED: Nitroglycerin 0.4 MG Tab.SL SL PRN (15:30)
[2024-05-23] MEDS: Albuterol 0.083% 2.5 MG/3 ML Neb Soln NEB PRN (18:28)
[2024-05-23] MEDS: Amoxicillin/Clavulanate K 500-125 MG Tab PO SCH (21:44)
[2024-05-23] MEDS: guaiFENesin 600 MG Tab.ER PO SCH (21:44)
[2024-05-23] MEDS: Miconazole 2% Vaginal Crm 45 GM Tube TOP SCH (21:44)
[2024-05-24] MEDS: Lidocaine 4% 1 each Patch TOP SCH (09:10)
[2024-05-24] MEDS: predniSONE 10 MG Tab PO SCH (09:10)
[2024-05-24] MEDS: amLODIPine 10 MG Tab PO SCH (09:10)
[2024-05-24] MEDS: Ezetimibe 10 MG Tab PO SCH (09:11)
[2024-05-24] MEDS: Tamsulosin 0.4 MG Cap.ER PO SCH (09:11)
[2024-05-24] MEDS: Cholecalciferol (Vitamin D3) 25 MCG Tab PO SCH (09:11)
[2024-05-24] MEDS: Aspirin 325 MG Tab.EC PO SCH (09:11)
[2024-05-24] MEDS: Remove Patch LIDODERM TRDERM SCH (09:13)
[2024-05-24] MEDS: Magnesium Hydroxide 400 MG/5 ML Susp 30 ML Cup PO PRN (16:20)
[2024-05-25] MEDS: Acetaminophen 325 MG Tab PO PRN (07:44)
[2024-05-26 07:28] LABS: BASOPHILS ABSOLUTE AUTO 0.1 x10^3/uL (0.0-0.2); BASOPHILS PERCENT AUTO 0.4 % (0.2-1.2); EOSINOPHILS ABSOLUTE AUTO 2.2 x10^3/uL (0.0-0.5); EOSINOPHILS PERCENT AUTO 18.5 % (0.0-4.0); HEMATOCRIT 26.5 % (40.0-52.0); HEMOGLOBIN 8.8 g/dL (14.0-18.0); IMMATURE GRAN ABSOLUTE AUTO 0.03 x10^3/uL (0.00-0.07); LYMPHOCYTES ABSOLUTE AUTO 1.7 x10^3/uL (1.0-4.8); LYMPHOCYTES PERCENT AUTO 13.9 % (25.0-50.0); MEAN CORPUSCULAR HEMOGLOBIN 31.9 pg (26.0-32.0); MEAN CORPUSCULAR HGB CONC 33.2 g/dL (32.0-36.0); MONOCYTES ABSOLUTE AUTO 1.3 x10^3/uL (0.0-0.8); MONOCYTES PERCENT AUTO 10.6 % (2.0-11.0); NEUTROPHILS ABSOLUTE AUTO 6.7 x10^3/uL (1.8-7.7); NEUTROPHILS PERCENT AUTO 56.3 % (50.0-80.0); RED BLOOD CELL COUNT 2.76 x10^6/uL (4.5-6.0); WHITE BLOOD CELL COUNT,WBC 11.9 x10^3/uL (4.0-10.0)
[2024-05-26 07:44] LABS: A/G RATIO 0.47; ALBUMIN 1.6 g/dL (3.4-5.0); BILIRUBIN TOTAL 0.3 mg/dL (0.2-1.0); CALCIUM 8.1 mg/dL (8.5-10.1); CREATININE 2.4 mg/dL (0.70-1.30); EST CRCL DRUG DOSING (CG) 19.2 mL/min; PLATELET COUNT,PLT 298 x10^3/uL (130-400); POTASSIUM,K 4.5 mmol/L (3.5-5.1)
[2024-05-26 07:46] LABS: ANION GAP 11.5 mmol/L (5-15)
[2024-05-26] MEDS: Sennosides/Docusate Sodium 50-8.6 MG Tab PO PRN (14:28)
[2024-05-26] MEDS: Torsemide 20 MG Tab PO SCH (16:44)
[2024-05-26] MEDS: Sennosides/Docusate Sodium 50-8.6 MG Tab PO SCH (21:04)
[2024-05-26] MEDS: Albuterol/Ipratropium 3.0-0.5 MG/3 ML Neb Soln NEB SCH (21:04)
[2024-05-26] MEDS: Melatonin 3 MG Tab PO SCH (21:04)
[2024-05-26] MEDS: traZODone 50 MG Tab PO SCH (21:05)
[2024-05-27 07:09] LABS: CALCIUM 8.4 mg/dL (8.5-10.1); CREATININE 2.5 mg/dL (0.70-1.30); EST CRCL DRUG DOSING (CG) 18.43 mL/min; POTASSIUM,K 4.7 mmol/L (3.5-5.1)
[2024-05-27 07:11] LABS: ANION GAP 14.7 mmol/L (5-15)
[2024-05-27 07:17] LABS: MAGNESIUM 2.2 mg/dL (1.8-2.4)
[2024-05-27] MEDS: Metoprolol Succinate 25 MG Tab.ER PO SCH (08:50)
[2024-05-27] MEDS: amLODIPine 10 MG Tab PO SCH (09:50)
[2024-05-27] MEDS: amLODIPine 5 MG Tab PO SCH (10:01)
[2024-05-27] MEDS: Arformoterol 15 MCG/2 ML Neb Soln NEB SCH (10:04)
[2024-05-27] MEDS: Budesonide 0.5 MG/2 ML Neb Susp NEB SCH (10:06)
[2024-05-27 10:29] LABS: BASE EXCESS ARTERIAL,POC -5 mmol/L ((-2)-3); O2 SATURATION ARTERIAL,POC 92.2 % (94-98); PCO2 ARTERIAL,POC 27 mmHg (35-48); PH ARTERIAL,POC 7.45 pH (7.35-7.45); PO2 ARTERIAL,POC 60 mmHg (83-108); TCO2 ARTERIAL,POC 18.4 mmol/L (22-29)
[2024-05-27] MEDS: Enoxaparin 60 MG/0.6 ML Syringe SUBCUT SCH (10:36)
[2024-05-27] MEDS: hydrOXYzine HCl 10 MG Tab PO PRN (11:27)
[2024-05-27] MEDS: SODIUM CHLORIDE 10% NEB SCH (15:33)
[2024-05-28] MEDS: Ondansetron 4 MG Tab.DIS PO PRN (06:25)
[2024-05-28] MEDS ORDERED: Sodium Chloride 0.9% 10 ML Syringe FLUSH PRN (09:59)
[2024-05-28] MEDS: Morphine Oral Concentrate 20 MG/ML 30 ML Bottle SL PRN (11:17)
[2024-05-28] MEDS: Furosemide 40 MG/4 ML VIAL IV SCH (11:49)
[2024-05-29] MEDS ORDERED: Furosemide 40 MG/4 ML VIAL ONE (06:02)
[2024-05-29] MEDS: Furosemide 40 MG/4 ML VIAL IVPUSH ONE (06:22)
[2024-05-29 06:41] LABS: BASOPHILS ABSOLUTE AUTO 0.1 x10^3/uL (0.0-0.2); BASOPHILS PERCENT AUTO 0.5 % (0.2-1.2); EOSINOPHILS ABSOLUTE AUTO 1.1 x10^3/uL (0.0-0.5); EOSINOPHILS PERCENT AUTO 7.2 % (0.0-4.0); HEMATOCRIT 31.2 % (40.0-52.0); HEMOGLOBIN 10.1 g/dL (14.0-18.0); IMMATURE GRAN ABSOLUTE AUTO 0.06 x10^3/uL (0.00-0.07); LYMPHOCYTES ABSOLUTE AUTO 3.6 x10^3/uL (1.0-4.8); LYMPHOCYTES PERCENT AUTO 23.8 % (25.0-50.0); MEAN CORPUSCULAR HEMOGLOBIN 31.4 pg (26.0-32.0); MEAN CORPUSCULAR HGB CONC 32.4 g/dL (32.0-36.0); MEAN CORPUSCULAR VOLUME 96.9 fL (78.0-93.0); MONOCYTES ABSOLUTE AUTO 1.2 x10^3/uL (0.0-0.8); MONOCYTES PERCENT AUTO 7.9 % (2.0-11.0); NEUTROPHILS ABSOLUTE AUTO 9.2 x10^3/uL (1.8-7.7); NEUTROPHILS PERCENT AUTO 60.2 % (50.0-80.0); PLATELET COUNT,PLT 380 x10^3/uL (130-400); RED BLOOD CELL COUNT 3.22 x10^6/uL (4.5-6.0); WHITE BLOOD CELL COUNT,WBC 15.2 x10^3/uL (4.0-10.0)
[2024-05-29 06:58] LABS: A/G RATIO 0.45; ALBUMIN 1.9 g/dL (3.4-5.0); BILIRUBIN TOTAL 0.5 mg/dL (0.2-1.0); CALCIUM 8.7 mg/dL (8.5-10.1); EST CRCL DRUG DOSING (CG) 14.4 mL/min; PROTEIN TOTAL,TP 6.1 g/dL (6.4-8.2)
[2024-05-29 06:59] LABS: ANION GAP 19.4 mmol/L (5-15)
[2024-05-29 07:00] LABS: CREATININE 3.2 mg/dL (0.70-1.30); POTASSIUM,K 6.4 mmol/L (3.5-5.1)
== END 2024-05-28 11:01 | disposition short-term general hospital (02) | DRG 947 ==
LOC: VM.MS 13:22 → UNDODISIN 05-29 07:45
PROVIDERS: ADMIT Nurse Practitioner Family; ATTEND Nurse Practitioner Family
DX: R53.81 Other malaise (principal); I50.43 Acute on chronic combined systolic (congestive) and diastolic (congestive) heart failure; J18.9 Pneumonia, unspecified organism; J96.01 Acute respiratory failure with hypoxia; N17.9 Acute kidney failure, unspecified; N18.4 Chronic kidney disease, stage 4 (severe); I13.0 Hypertensive heart and chronic kidney disease with heart failure and stage 1 through stage 4 chronic kidney disease, or unspecified chronic kidney disease; E87.0 Hyperosmolality and hypernatremia; E27.40 Unspecified adrenocortical insufficiency; E46 Unspecified protein-calorie malnutrition; Z51.5 Encounter for palliative care; M35.3 Polymyalgia rheumatica; I25.2 Old myocardial infarction; E78.2 Mixed hyperlipidemia; N40.1 Benign prostatic hyperplasia with lower urinary tract symptoms; R33.8 Other retention of urine; Z68.25 Body mass index [BMI] 25.0-25.9, adult; I25.10 Atherosclerotic heart disease of native coronary artery without angina pectoris; M19.90 Unspecified osteoarthritis, unspecified site; G47.00 Insomnia, unspecified; I49.3 Ventricular premature depolarization; I95.1 Orthostatic hypotension; Z97.8 Presence of other specified devices; Z88.2 Allergy status to sulfonamides; Z88.8 Allergy status to other drugs, medicaments and biological substances; Z79.82 Long term (current) use of aspirin; Z79.52 Long term (current) use of systemic steroids; Z86.73 Personal history of transient ischemic attack (TIA), and cerebral infarction without residual deficits; Z90.49 Acquired absence of other specified parts of digestive tract; Z98.49 Cataract extraction status, unspecified eye; Z79.899 Other long term (current) drug therapy; Z98.890 Other specified postprocedural states
CPT/HCPCS: 36415; 36600; 71045; 71046; 80048; 80053; 82607; 82803; 82947; 83735; 83880; 84484; 85018; 85025; 87070; 93005; 94640; 94667; 94760; 97110-GP; 97161-GP; 97165-GO; 97535-GO; A9270-GY; J1650; J1940; J3490; J7512; J7613-GY; J7620-GY

== ENCOUNTER 2024-05-28 11:00 | Inpatient (IN) | payer MEDICARE, OTHER | END 2024-05-29 07:45 | disposition EXP | DRG 947 | LOC: VM.MS 11:00 → UNDOADMIN 11:00 → VM.MS 11:02 | PROVIDERS: ADMIT Internal Medicine; ATTEND Internal Medicine | DX: R53.81 Other malaise (principal); E43 Unspecified severe protein-calorie malnutrition; J18.9 Pneumonia, unspecified organism; I21.4 Non-ST elevation (NSTEMI) myocardial infarction; J96.01 Acute respiratory failure with hypoxia; I50.41 Acute combined systolic (congestive) and diastolic (congestive) heart failure; J85.1 Abscess of lung with pneumonia; I13.0 Hypertensive heart and chronic kidney disease with heart failure and stage 1 through stage 4 chronic kidney disease, or unspecified chronic kidney disease; J44.0 Chronic obstructive pulmonary disease with (acute) lower respiratory infection; N17.9 Acute kidney failure, unspecified; N18.4 Chronic kidney disease, stage 4 (severe); E87.0 Hyperosmolality and hypernatremia; E27.40 Unspecified adrenocortical insufficiency; Z51.5 Encounter for palliative care; I35.0 Nonrheumatic aortic (valve) stenosis; M81.0 Age-related osteoporosis without current pathological fracture; D63.1 Anemia in chronic kidney disease; N40.1 Benign prostatic hyperplasia with lower urinary tract symptoms; R33.8 Other retention of urine; I25.10 Atherosclerotic heart disease of native coronary artery without angina pectoris; G47.00 Insomnia, unspecified; E78.2 Mixed hyperlipidemia; M35.3 Polymyalgia rheumatica; I49.3 Ventricular premature depolarization; Z97.8 Presence of other specified devices; Z79.52 Long term (current) use of systemic steroids; Z79.82 Long term (current) use of aspirin; Z79.899 Other long term (current) drug therapy; Z90.49 Acquired absence of other specified parts of digestive tract; Z98.49 Cataract extraction status, unspecified eye; Z98.890 Other specified postprocedural states | CPT/HCPCS: 36415; 80053; 85025; 94640; 94760; A9270-GY; J1940; J3490; J7613-GY; J7620-GY ==